=== PATIENT | female | born 1975 | race Caucasian/White ===

== ENCOUNTER → 2018-04-15 | Outpatient (CLI) | payer BC, OTHER ==
--- NOTE | 2018-04-15 12:24 | Diagnostic Imaging Report ---
EXAMINATION: Pelvic ultrasound, Non-OB. INDICATION: Enlarged uterus. There are no prior studies available for comparison. FINDINGS: The uterus is nongravid and not enlarged measuring 9.7 x 4.9 x 2.9 cm. The endometrial lining is not thickened measuring 4 mm. There is no focal mass involving the uterus to suggest a fibroid. In the right adnexa, there is a 4.5 x 4.9 x 4.3 cm complex mass with mixed echogenicity. This may represent an ovarian cyst which has been complicated by infection and/or hemorrhage. An endometrioma could also present in this manner. The possibility that this is related to an ovarian neoplasm would be unlikely in a patient of this age but should still be considered. If further evaluation is desired, then laparoscopy will be recommended. If there is no intervention at this time, then a short-term (4-6 week) follow-up pelvic ultrasound exam should be obtained. The left ovary is unremarkable. There is no solid pelvic mass or free fluid collection noted. IMPRESSION: 1. There is a 4.5 x 4.9 x 4.3 cm complex mass in the right adnexa. This is most likely an ovarian cyst which has been complicated by infection and/or hemorrhage. Additional considerations and recommendations as above. 2. There is no acute pelvic abnormality noted otherwise. Dictated by: Dictated on workstation # [id number]
== END ==
LOC: RAD 09:17
PROVIDERS: ATTEND Obstetrics & Gynecology
DX: N83.8 Other noninflammatory disorders of ovary, fallopian tube and broad ligament (principal); N85.2 Hypertrophy of uterus
CPT/HCPCS: 76830; 76856

== ENCOUNTER → 2018-07-01 | Outpatient (CLI) | payer OTHER ==
--- NOTE | 2018-07-01 10:53 | Diagnostic Imaging Report ---
PROCEDURE: US PELVIC (NON OB) TECHNIQUE: Multiple real-time grayscale images were obtained over the pelvis in various projections transabdominally. INDICATION: Right ovarian mass. Study is performed for followup. COMPARISON: Correlation is made with prior ultrasound from 04/15/2018. FINDINGS: The uterus measures 9.2 x 4.9 x 4.4 cm. No myometrial masses seen. Endometrium is somewhat thickened at 13 mm. The right ovary measures 5.5 x 4.7 x 3.7 cm and the left ovary measures 4.2 x 2.8 x 2.2 cm. The previously noted complex mass involving the right ovary is again seen measuring 4.8 x 4.4 x 3.5 cm, similar to prior exam. No internal vascularity is seen. Left ovary contains a 19 mm cyst. There is blood flow to the ovaries. There is no free fluid. IMPRESSION: Stable complex right ovarian mass when compared with prior examination from 04/15/2018. Dictated by: Dictated on workstation # [id number]
== END ==
LOC: RAD 09:08
PROVIDERS: ATTEND Obstetrics & Gynecology
DX: N83.201 Unspecified ovarian cyst, right side (principal)
CPT/HCPCS: 76856

== ENCOUNTER → 2018-12-30 | Outpatient (CLI) | payer OTHER ==
--- NOTE | 2018-12-30 13:32 | Diagnostic Imaging Report ---
PROCEDURE: US PELVIC (NON OB) TECHNIQUE: Multiple real-time grayscale images were obtained over the pelvis in various projections transabdominally. INDICATION: Right ovarian cyst. Correlation is made with prior ultrasound from 07/01/2018. FINDINGS: Uterus measures 9.0 x 4.3 x 4.7 cm. Endometrium is 13 mm in thickness. No myometrial mass is detected. The left ovary measures 3.1 x 2.7 x 2.4 cm. Complex mass versus the right ovary itself in the right adnexa measures 5.5 x 4.8 x 4.2 cm. This is increased in size since prior study of 4.8 x 4.4 x 3.5 cm. No separate ovarian tissue at this location is identified. The left ovary does contain a simple cyst 1.3 cm in size. There is trace free fluid. IMPRESSION: Complex mass in the right adnexa versus a heterogeneous enlarged right ovary. Overall measurements are slightly increased since prior exam and a right adnexal mass cannot be entirely excluded. Dictated by: Dictated on workstation # [id number]
== END ==
LOC: RAD 11:57
PROVIDERS: ATTEND Obstetrics & Gynecology
DX: N83.201 Unspecified ovarian cyst, right side (principal)
CPT/HCPCS: 76856

== ENCOUNTER → 2019-08-25 | Outpatient (CLI) | payer OTHER ==
--- NOTE | 2019-08-25 11:41 | Diagnostic Imaging Report ---
INDICATION: Right adnexal mass, follow up. TECHNIQUE: Multiple real time zepeda scale sonographic images were obtained of the pelvis transabdominally. CORRELATION STUDY: 12/30/2018. FINDINGS: UTERUS: 8.4 x 4.2 x 5.1 cm. The uterus appears unremarkable. ENDOMETRIUM: 3 mm. The endometrium appearing unremarkable. LEFT OVARY: Unable to be visualized. Could be owing to position or obscuration by bowel. RIGHT OVARY: There is again demonstration of indeterminate findings whether there is an enlarged complex right ovary or a right adnexal mass. This overall appears generally stable at approximately 5.5 x 4.8 x 4.2 cm. Blood flow is present. No significant free pelvic fluid. IMPRESSION: 1. Complex mass in the right adnexa is again demonstrated. It is indeterminate whether this is the right ovary which does appear to be prominent versus an underlying adnexal mass. This appears generally stable from prior study. Given its continued appearance, perhaps further imaging evaluation utilizing MRI would be recommended. Dictated by: Dictated on workstation # [id number]
== END ==
LOC: RAD 09:18
PROVIDERS: ATTEND Obstetrics & Gynecology
DX: N83.201 Unspecified ovarian cyst, right side (principal)
CPT/HCPCS: 76856

== ENCOUNTER 2021-01-12 16:48 | Emergency (ER) | payer OTHER ==
[~2021-01-12] VITALS: Ht 147 cm; Wt 47.0 kg
--- NOTE | 2021-01-12 17:08 | ED Integumentary General ---
General Stated Complaint: RASH ALL OVER BODY Source: patient Exam Limitations: no limitations History of Present Illness Date Seen by Provider: Jan 12, 2021 Time Seen by Provider: 16:56 Initial Comments PlanHere with report of rash to her trunk as well as her upper arms bilateral. Onset last night and seems to be getting worse. It does appear to be like hives. She was working in the garden yesterday but does not know of any inciting events. She is not otherwise allergic to anything. Denies breathing problems, vomiting or swelling in her mouth or throat. Timing/Duration: yesterday Severity: moderate Possible Cause: other Associated Symptoms: hives, rash Allergies and Home Medications Allergies Coded Allergies: No Known Drug Allergies (Unverified , 04/21/15) Home Medications No Active Prescriptions or Reported Meds Patient Home Medication List Home Medication List Reviewed: Yes Review of Systems Review of Systems Constitutional: No chills, No fever EENTM: No nose congestion, No throat pain, No throat swelling Respiratory: No short of breath, No stridor, No wheezing Cardiovascular: no symptoms reported Gastrointestinal: No nausea, No vomiting Skin: see HPI Past Jckktti-Emziog-Wxstze Hx Past Med/Social Hx: Reviewed Nursing Past Med/Soc Hx Patient Social History Alcohol Use: Denies Use Smoking Status: Never a Smoker Past Medical History Surgeries: No Respiratory: No Cardiac: No Neurological: No : No Genitourinary: No Psychosocial: No Family Medical History Reviewed Nursing Family Hx Physical Exam Vital Signs Capillary Refill : General Appearance: WD/WN, no apparent distress HEENT: PERRL/EOMI, pharynx normal Neck: full range of motion, supple Cardiovascular: regular rate, rhythm, no murmur Respiratory: lungs clear, normal breath sounds Skin: warm/dry, other (Hives to trunk and upper extremities bilateral) Progress/Results/Core Measures Results/Orders My Orders Orders - GIORGIO TO MD Dexamethasone Injection (Decadron Inje (01/12/21 17:15) Progress Progress Note : Progress Note Seen and evaluated. Patient would like a shot for the hives. Decadron 10 mg IM ordered. She will do OTC Benadryl and famotidine at home. Discharged home with return precautions. Patient verbalized understanding of instructions and agreement with plan. Departure Impression Primary Impression: Hives Disposition: 01 HOME, SELF-CARE Condition: Stable Departure-Patient Inst. Decision time for Depature: 17:07 Referrals: NO,LOCAL PHYSICIAN (PCP/Family) Primary Care Physician Patient Instructions: Hives (DC) Add. Discharge Instructions: You may take azob-glo-wgyjgje Benadryl/diphenhydramine 25 mg every 6 hours as needed for itching or hives. You may also take mwdy-yja-fxfggem Pepcid/famotidine 20 mg daily for the next 4 days and then as needed. Drink plenty of fluids. Follow-up with your doctor in a few days for recheck. Return for increasing hives, breathing problems, throat swelling, nausea, vomiting, weakness or other concerns as needed. Scripts No Active Prescriptions or Reported Meds GIORGIO TO MD Jan 12, 2021 17:08
[2021-01-12 17:19] VITALS: BP 0/0
== END 2021-01-12 17:19 | disposition home or self-care (01) ==
LOC: EDUNIT# 16:48 → ER 16:49
DX: L50.9 Urticaria, unspecified (principal)
CPT/HCPCS: 99284